=== PATIENT | female | born 1990 | race American Indian/Alaskan Native ===

== ENCOUNTER 2021-09-15 07:56 | Outpatient (CLI) | payer MEDICAID ==
[2021-09-15 08:51] VITALS: BP 116/66
--- NOTE | 2021-09-15 11:37 | Vascular Lab Report ---
DUPLEX DOPPLER LOWER EXTREMITY VEINS, LEFT INDICATION / CLINICAL INFORMATION: Left leg pain. 25 weeks . TECHNIQUE: Duplex doppler imaging was performed through the veins of the left lower extremity using v enous compression and other maneuvers. COMPARISON: None available. FINDINGS: LEFT COMMON FEMORAL VEIN: Negative. LEFT FEMORAL VEIN: Negative. LEFT POPLITEAL VEIN: Negative. LEFT CALF VEINS: Negative. ADDITIONAL FINDINGS: No abnormal mass or fluid collection is seen. IMPRESSION: No sonographic evidence for DVT in the left lower extremity. Signer Name: Parminder Flores MD Signed: 09/15/2021 11:30 AM Workstation Name: [id number]
== END 2021-09-15 10:55 | disposition home or self-care (01) ==
LOC: TRG 07:56 → APU 07:58 → TRG 10:55
PROVIDERS: ATTEND Obstetrics & Gynecology
DX: O26.892 Other specified pregnancy related conditions, second trimester (principal); M54.50 Low back pain, unspecified; M79.662 Pain in left lower leg; Z3A.26 26 weeks gestation of pregnancy
CPT/HCPCS: 59025

== ENCOUNTER 2021-09-24 09:28 | Outpatient (CLI) | payer MEDICAID ==
[2021-09-24] MEDS ORDERED: LACTATED RINGERS 1,000 ML IV ONE ×2 (09:37→11:30)
[2021-09-24] MEDS ORDERED: LOPERAMIDE 2 MG CAP PO PRN (09:38)
[2021-09-24 09:55] VITALS: BP 99/60
[2021-09-24 10:59] LABS: Hematocrit 31.9 % (30.3-42.9); Mean Corpuscular HGB Conc 31 % (30-34); Mean Corpuscular Volume 71 fl (79-97); Platelet Count 197 K/mm3 (140-440); Red Blood Count 4.47 M/mm3 (3.65-5.03); Red Cell Distribution Width 13.3 % (13.2-15.2)
[2021-09-24] MEDS ORDERED: METOCLOPRAMIDE 10 MG/2 ML INJ IV ONE (11:00)
[2021-09-24 11:19] LABS: Alanine Aminotransferase 6 units/L (7-56); Albumin 3.5 g/dL (3.9-5); Blood Urea Nitrogen 6 mg/dL (7-17); Calcium 8.5 mg/dL (8.4-10.2); Hemolysis Index 25
[2021-09-24 11:22] LABS: Mucus,Urine 3+ /HPF
[2021-09-24 11:23] LABS: BUN/Creatinine Ratio 12
[2021-09-24 11:26] LABS: Bilirubin,Urine Negative (Negative); Blood,Urine Negative (Negative); Color,Urine T (Yellow); Urobilinogen,Urine < 2.0 mg/dL (<2.0)
[2021-09-24] MEDS ORDERED: ONDANSETRON 4 MG/2 ML INJ IV ONE (11:30)
== END 2021-09-24 11:20 | disposition left against medical advice (07) ==
LOC: TRG 09:28 → APU 09:28 → TRG 11:20
PROVIDERS: ATTEND Obstetrics & Gynecology
DX: O26.892 Other specified pregnancy related conditions, second trimester (principal); R10.9 Unspecified abdominal pain; R19.7 Diarrhea, unspecified; O09.93 Supervision of high risk pregnancy, unspecified, third trimester; Z3A.26 26 weeks gestation of pregnancy
CPT/HCPCS: 36415; 59025; 80053; 81001; 85027; 96365; 96366; 96368; J2405; J2765; 96360